=== PATIENT | male | born 1960 | race African-American/Black ===

== ENCOUNTER 2023-06-21 17:28 | Emergency (ER) | payer OTHER ==
[2023-06-21] MEDS ORDERED: Boostrix 0.5 ML (Tdap) VIAL (>/=7 yrs of age) ONE (17:59)
[2023-06-21] MEDS ORDERED: Bacitracin 1 PK ONE (18:11)
== END 2023-06-21 18:20 | disposition home or self-care (01) ==
LOC: CSHERS 17:28
DX: S61.211A Laceration without foreign body of left index finger without damage to nail, initial encounter (principal); I10 Essential (primary) hypertension; J44.9 Chronic obstructive pulmonary disease, unspecified; W23.1XXA Caught, crushed, jammed, or pinched between stationary objects, initial encounter; Z87.891 Personal history of nicotine dependence; Z23 Encounter for immunization
CPT/HCPCS: 90471; 90715